=== PATIENT | male | born 1990 | race African-American/Black ===

== ENCOUNTER 2017-06-01 05:15 | Emergency (ER) | payer BC ==
[2017-06-01] MEDS ORDERED: diphenhydrAMINE 25 MG Cap PO ONE (05:32)
[2017-06-01] MEDS ORDERED: predniSONE 20 MG Tab PO ONE (05:32)
[2017-06-01] MEDS ORDERED: Famotidine 20 MG Tab PO ONE (05:32)
--- NOTE | 2017-06-01 05:32 | EDM.PDOC ---
ED HPI GENERAL MEDICAL PROBLEM - General Chief Complaint: Skin Complaint Stated Complaint: SWOLLEN LIPS Time Seen by Provider: 06/01/17 05:23 - History of Present Illness INITIAL COMMENTS - FREE TEXT/NARRATIVE: 26-year-old male presents emergency room with swollen lips. Patient awoke this morning with these. They're significantly swollen. Patient denies any shortness of breath or breathing difficulties. Patient has noticed the onset of a cold sore this last evening on the left lower lip. He's had cold sores in the past that eventually healed up using [id number] preparations issues to take couple weeks to heal. Prior to this sore developing he noticed tingling underneath the skin. Past medical history noncontributory medications: None allergies: None - Related Data Allergies Allergy/AdvReac Type Severity Reaction Status Date / Time No Known Allergies Allergy Verified 06/01/17 05:22 Home Meds: Home Meds Famotidine [Pepcid] 20 mg PO Q12H #20 tablet 06/01/17 [Rx] predniSONE [Prednisone] 60 mg PO Q24H #9 tablet 06/01/17 [Rx] valACYclovir HCl [Valtrex] 2,000 mg PO Q24H #4 tablet 06/01/17 [Rx] ED ROS GENERAL - Review of Systems Review Of Systems: See Below Constitutional: Reports: No Symptoms HEENT: Reports: No Symptoms Respiratory: Reports: No Symptoms. Denies: Cough Cardiovascular: Reports: No Symptoms GI/Abdominal: Reports: No Symptoms ED EXAM, SKIN/RASH Exam: See Below Exam Limited By: No Limitations General Appearance: Alert, No Apparent Distress Eye Exam: Bilateral Eye: Normal Inspection Ears: Normal External Exam, Normal Canal, Hearing Grossly Normal, Normal TMs Nose: Normal Inspection, Normal Mucosa, No Blood Throat/Mouth: Normal Inspection, Normal Teeth, Normal Gums, Normal Oropharynx, Normal Voice, No Airway Compromise, Other (Lips are little swollen low left lower he has a fissure no discrete blistering.). No: Normal Lips Head: Atraumatic, Normocephalic Neck: Normal Inspection, Supple, Non-Tender, Full Range of Motion Respiratory/Chest: No Respiratory Distress, Lungs Clear, Normal Breath Sounds Cardiovascular: Regular Rate, Rhythm, No Edema, No Murmur Extremities: Normal Inspection, No Pedal Edema Neurological: Alert, Oriented, Normal Cognition Course - Vital Signs Last Recorded V/S: Last Vital Signs Temp 36.2 C 06/01/17 05:22 Pulse 95 06/01/17 05:22 Resp 16 06/01/17 05:22 BP 152/75 H 06/01/17 05:22 Pulse Ox 98 06/01/17 05:22 - Orders/Labs/Meds Meds: Medications Discontinued Medications Generic Name Dose Route Start Last Admin Trade Name Kathleen PRN Reason Stop Dose Admin Acyclovir 800 mg 06/01/17 05:32 Zovirax PO 06/01/17 05:33 ONETIME ONE Diphenhydramine HCl 25 mg 06/01/17 05:32 06/01/17 05:57 Benadryl PO 06/01/17 05:33 25 mg ONETIME ONE Administration Famotidine 40 mg 06/01/17 05:32 06/01/17 05:56 Pepcid PO 06/01/17 05:33 40 mg ONETIME ONE Administration Prednisone 60 mg 06/01/17 05:32 06/01/17 05:56 Prednisone PO 06/01/17 05:33 60 mg ONETIME ONE Administration Valacyclovir HCl 2,000 mg 06/01/17 05:53 06/01/17 05:56 Valtrex PO 06/01/17 05:54 2,000 mg ONETIME ONE Administration - Re-Assessments/Exams Free Text/Narrative Re-Assessment/Exam: 06/01/17 06:08 Treated with showman will begin with Prevacid 40 mg Benadryl 25 mg prednisone 60 mg. With his history of cold sores this is concerning especially when he had the tingling sensation under the concerning potential breakout and now a potential lesion developing albeit not a typical lesion we'll go ahead and put on Valtrex especially with the prednisone as part of his treatment. Departure - Departure Time of Disposition: 06:53 Disposition: Home, Self-Care 01 Clinical Impression: Lip swelling, Recurrent cold sores - Discharge Information Prescriptions: Famotidine [Pepcid] 20 mg PO Q12H #20 tablet predniSONE [Prednisone] 60 mg PO Q24H #9 tablet valACYclovir HCl [Valtrex] 2,000 mg PO Q24H #4 tablet Referrals: PCP,None [Primary Care Provider] - Forms: ED Department Discharge Additional Instructions: Return to the emergency room with any questions problems worsening symptoms. You have been started on several medications the first one is Valtrex for the cold sore. You will take 2000 mg this evening and then you are done with the Valtrex. He'll take prednisone every morning starting tomorrow morning 3 20 mg tablets until gone. You have been started on Pepcid take 20 mg twice daily for 10 days. You can use Benadryl 25 mg every 6 hours as needed. The Benadryl is [id number]. The Pepcid can also be obtained [id number]. Follow-up in the clinic for recheck in 2 days. [id number]
[2017-06-01] MEDS ORDERED: valACYclovir 500 MG Tab PO ONE (05:53)
== END 2017-06-01 07:00 | disposition home or self-care (01) ==
LOC: JD.ED 05:15
DX: B00.1 Herpesviral vesicular dermatitis (principal)
CPT/HCPCS: 99283; A9270